=== PATIENT | female | born 1970 | race Hispanic/Latino ===

== ENCOUNTER → 2016-03-26 | Outpatient (CLI) | payer OTHER ==
[~2016-03-26] VITALS: Ht 162.6 cm; Wt 79.3 kg
[~2016-03-26] MED LIST: ALBUTEROL LIQ INH; BELV10TA PO; CEFT250T OR; COLA100C PO; ESTR625TA PO; IBUP80TA PO; KETO-28 OR; LIDOCAINE 2% INJ 100 MG/5 ML SDV (FOR ANES.) As Ordered ONE; NAPR500T OR; NORT10CA2 PO; NS 1,000 ML IV SCH; PERC5TAB6 PO; PROPOFOL 200 MG/20 ML VIAL As Ordered ONE; SPIR50TA2 PO; TYLE325T5 PO; [UNRECOGNIZED DRUG - CODE] PO
--- NOTE | 2016-03-26 07:57 | ROOR ---
Patient Name: Karen Bell Procedure Date: 03/26/2016 7:30 AM Date of : 1970 Age: 45 Room: [facility] Gender: Female Note Status: Finalized Procedure: Colonoscopy Indications: Suspected diverticulosis of the colon Providers: DO Alessandra Infante MD: Johan Cummings Requesting Provider: Medicines: Propofol per Anesthesia Complications: No immediate complications. Procedure: Pre-Anesthesia Assessment: - Prior to the procedure, a History and Physical was performed, and patient medications and allergies were reviewed. The patient is competent. The risks and benefits of the procedure and the sedation options and risks were discussed with the patient. All questions were answered and informed consent was obtained. Patient identification and proposed procedure were verified by the physician, the nurse, the anesthesiologist and the aerial survey technician in the endoscopy suite. Mental Status Examination: normal. Airway Examination: normal oropharyngeal airway and neck mobility. Respiratory Examination: clear to auscultation. CV Examination: normal. Prophylactic Antibiotics: The patient does not require prophylactic antibiotics. Prior Anticoagulants: The patient has taken no previous anticoagulant or antiplatelet agents. ASA Grade Assessment: II - A patient with mild systemic disease. After reviewing the risks and benefits, the patient was deemed in satisfactory condition to undergo the procedure. The anesthesia plan was to use monitored anesthesia care (MAC). Immediately prior to administration of medications, the patient was re-assessed for adequacy to receive sedatives. The heart rate, respiratory rate, oxygen saturations, blood pressure, adequacy of pulmonary ventilation, and response to care were monitored throughout the procedure. The physical status of the patient was re-assessed after the procedure. The Colonoscope was introduced through the anus and advanced to the cecum, identified by appendiceal orifice and ileocecal valve. The colonoscopy was performed without difficulty. The patient tolerated the procedure well. Findings: A 10 mm polyp was found in the sigmoid colon. The polyp was pedunculated. The polyp was removed with a hot snare. Resection and retrieval were complete. The exam was otherwise without abnormality on direct and retroflexion views. Impression: - One 10 mm polyp in the sigmoid colon, removed with a hot snare. Resected and retrieved. - The examination was otherwise normal on direct and retroflexion views. Recommendation: - Patient has a contact number available for emergencies. The signs and symptoms of potential delayed complications were discussed with the patient. Return to normal activities tomorrow. Written discharge instructions were provided to the patient. - Repeat colonoscopy in 5-10 years for surveillance based on pathology results. - Return to my office PRN. - Await pathology results. Mehdi Dooley DO 03/26/2016 7:56:55 AM This report has been signed electronically. Number of Addenda: 0 Note Initiated On: 03/26/2016 7:30 AM Estimated Blood Loss: Estimated blood loss was minimal.
[2016-03-26 08:22] VITALS: BP 147/83
== END ==
LOC: M OPP 06:22
PROVIDERS: ATTEND Surgery
DX: Z03.89 Encounter for observation for other suspected diseases and conditions ruled out (principal); D12.5 Benign neoplasm of sigmoid colon; K57.32 Diverticulitis of large intestine without perforation or abscess without bleeding; K42.9 Umbilical hernia without obstruction or gangrene; K92.1 Melena; R19.7 Diarrhea, unspecified; K59.00 Constipation, unspecified; G47.00 Insomnia, unspecified; G47.30 Sleep apnea, unspecified; J45.909 Unspecified asthma, uncomplicated; F32.9 Major depressive disorder, single episode, unspecified; M79.661 Pain in right lower leg; M79.662 Pain in left lower leg; R14.3 Flatulence; R30.0 Dysuria; R35.0 Frequency of micturition; M54.9 Dorsalgia, unspecified; M25.551 Pain in right hip; M25.552 Pain in left hip; M25.561 Pain in right knee; M25.562 Pain in left knee; Z79.899 Other long term (current) drug therapy; Z88.5 Allergy status to narcotic agent

== ENCOUNTER 2016-05-28 07:53 | Emergency (ER) | payer OTHER ==
[~2016-05-28] VITALS: Ht 162.6 cm; Wt 82.6 kg
[~2016-05-28 07:53] MED LIST changes: -COLA100C PO; +COLA100C3 PO; -LIDOCAINE 2% INJ 100 MG/5 ML SDV (FOR ANES.) As Ordered ONE; -NS 1,000 ML IV SCH; -PROPOFOL 200 MG/20 ML VIAL As Ordered ONE
[2016-05-28] MEDS ORDERED: ONDANSETRON 4MG/2ML VIAL (J2405) IV ONE (09:00)
[2016-05-28] MEDS ORDERED: KETOROLAC 30 MG/ML VIAL (J1885) IV ONE (09:00)
[2016-05-28] MEDS ORDERED: NS 1,000 ML IV ONE (09:00)
[2016-05-28 09:38] LABS: BASO % 0.6 % (0.0-1.0); EOS # 0.3 K/mm3 (0.0-0.50); EOS % 4.7 % (0.0-3.0); LARGE UNSTAINED CELL # 0.2 K/mm3 (0.0-0.4); LARGE UNSTAINED CELL % 3.1 % (0.0-4.0); LYMPH # 1.9 K/mm3 (1.5-4.5); LYMPH % 32.3 % (24.0-44.0); MEAN CORPUSCULAR HEMOGLOBIN 26.2 pg (27.0-33.0); MEAN CORPUSCULAR HGB CONC 33.2 g/dl (32.0-36.5); MEAN CORPUSCULAR VOLUME 78.8 fl (80.0-96.0); MONO # 0.4 K/mm3 (0.0-0.8); MONO % 6.4 % (0.0-5.0); NEUTROPHILS # 3.1 K/mm3 (1.8-7.7); NEUTROPHILS % 52.9 % (36.0-66.0); PLATELET COUNT, AUTOMATED 212 k/mm3 (150-450); RED CELL DISTRIBUTION WIDTH 12.8 % (11.5-14.5); WHITE BLOOD COUNT 5.8 K/mm3 (4.0-10.0)
[2016-05-28 10:20] LABS: ALBUMIN 3.4 GM/DL (3.2-5.2); ALBUMIN/GLOBULIN RATIO 0.83 (1.00-1.93); ALKALINE PHOSPHATASE 139 U/L (45-117); ALT/SGPT 48 U/L (12-78); ANION GAP 6 MEQ/L (8-16); AST/SGOT 30 U/L (15-37); BILIRUBIN,DIRECT < 0.1 MG/DL (0.0-0.2); BILIRUBIN,TOTAL 0.4 MG/DL (0.2-1.0); BLOOD UREA NITROGEN 16 MG/DL (7-18); CALCIUM LEVEL 9.1 MG/DL (8.5-10.1); CARBON DIOXIDE LEVEL 30 MEQ/L (21-32); CHLORIDE LEVEL 106 MEQ/L (98-107); CREATININE FOR GFR 0.76 MG/DL (0.55-1.02); GLOMERULAR FILTRATION RATE > 60.0 (>58); GLUCOSE, FASTING 102 MG/DL (70-105); POTASSIUM SERUM 3.8 MEQ/L (3.5-5.1); SODIUM LEVEL 142 MEQ/L (136-145); TOTAL PROTEIN 7.5 GM/DL (6.4-8.2)
[2016-05-28] MEDS ORDERED: MORPHINE 4 MG/ML 1ML SYRINGE IV ONE (10:30)
[2016-05-28] MEDS ORDERED: BENT20TA PO (11:51)
--- NOTE | 2016-05-28 12:06 | REP ---
KUB, TWO VIEWS: HISTORY: Abdominal pain. Air is present in small and large intestine. There are no air fluid levels or dilated loops of intestine. There is no pneumoperitoneum. A surgical clip is present in the pelvis. IMPRESSION: Nonspecific bowel gas pattern. Signed by Rivas Alarcon MD 05/28/2016 12:08 P
[2016-05-28 12:15] VITALS: BP 119/76
== END 2016-05-28 12:23 | disposition home or self-care (01) ==
LOC: EDBD 07:53 → M ED 09:08
DX: R10.12 Left upper quadrant pain (principal); R10.32 Left lower quadrant pain; M54.9 Dorsalgia, unspecified; F99 Mental disorder, not otherwise specified; Z88.5 Allergy status to narcotic agent; Z79.899 Other long term (current) drug therapy
CPT/HCPCS: 74000; 80048; 80076; 81001; 83690; 85025; 96361; 96374; 96375; 99284; J1885; J2405

== ENCOUNTER → 2016-06-06 | Outpatient (REF) | payer OTHER ==
[~2016-06-06] MED LIST changes: +BENT20TA PO
== END ==
LOC: M LAB REF 12:25
PROVIDERS: ATTEND Family Medicine Addiction Medicine
DX: R10.12 Left upper quadrant pain (principal)

== ENCOUNTER → 2016-06-20 | Outpatient (REF) | payer OTHER | LOC: M LAB REF 16:18 | PROVIDERS: ATTEND Family Medicine Addiction Medicine | DX: R30.0 Dysuria (principal) ==

== ENCOUNTER → 2016-07-07 | Outpatient (CLI) | payer OTHER ==
[~2016-07-07] MED LIST changes: +GASTROGRAFIN SOLUTION 30ML (Q9963) As Ordered ONE; +ISOVUE-370 76% 100ML VIAL (Q9967) As Ordered ONE
--- NOTE | 2016-07-08 05:48 | REP ---
Clinical: Left upper quadrant pain. Technique: Axial contrast enhanced images from the lung bases to the pubic symphysis new oozing oral and 100 ml Isovue 370 intravenous contrast material with coronal and sagittal re-formations. Comparison: 02/13/2016. Findings: Mild linear atelectasis in the left lung base is suggested and should be correlated with physical examination. Visualized heart and pericardium are normal. Small hiatal hernia suggested at the gastroesophageal junction. Fatty infiltration the liver is noted along with hepatomegaly. No focal hepatic lesion identified. Spleen, pancreas, gallbladder, bilateral adrenal glands and kidneys are normal. The enteric system is without obstruction or acute inflammatory process. Few scattered sigmoid diverticula noted without acute diverticulitis. This demonstrates prior hysterectomy a 1.1 cm right lateral bladder diverticulum is identified (image 125). No ascites. No adenopathy. No free air. Vasculature is normal. Musculoskeletal structures are grossly intact without focal osseous abnormality. Impression: 1. Mild linear atelectasis and the left lung base should be correlated clinically. 2. 1.1 cm right lateral bladder diverticulum. 3. Few scattered diverticula without acute diverticulitis. 4. Hepatomegaly and fatty infiltration to the liver without focal abnormality. Signed by Jae Hill MD 07/08/2016 05:39 A
== END ==
LOC: M RAD 11:08
PROVIDERS: ATTEND Family Medicine Addiction Medicine
DX: J98.11 Atelectasis (principal); N32.3 Diverticulum of bladder; K57.90 Diverticulosis of intestine, part unspecified, without perforation or abscess without bleeding; R16.2 Hepatomegaly with splenomegaly, not elsewhere classified; K76.0 Fatty (change of) liver, not elsewhere classified
CPT/HCPCS: 74177; Q9963; Q9967

== ENCOUNTER → 2016-07-16 | Outpatient (REF) | payer OTHER ==
[~2016-07-16] MED LIST changes: -GASTROGRAFIN SOLUTION 30ML (Q9963) As Ordered ONE; -ISOVUE-370 76% 100ML VIAL (Q9967) As Ordered ONE
[2016-07-16 09:53] LABS: MICROSCOPIC INDICATED? MAN YES (NO)
[2016-07-16 09:54] LABS: BACTERIA, URINE SMALL AMOUNT; HYALINE CAST, URINE NONE SEEN /lpf (0-1); MICROSCOPIC EXAM PERFORMED; RBC, URINE NONE SEEN /hpf (0-3); SQUAMOUS EPITHELIAL CELL URINE SMALL AMOUNT /hpf (SMALL AMT)
== END ==
LOC: M LAB REF 09:30
PROVIDERS: ATTEND Family Medicine Addiction Medicine
DX: R30.0 Dysuria (principal)

== ENCOUNTER → 2016-07-30 | Outpatient (REF) | payer OTHER, MEDICAID | LOC: M SMT 13:14 | PROVIDERS: ATTEND Nurse Practitioner Family | DX: R39.15 Urgency of urination (principal) ==

== ENCOUNTER → 2016-08-13 | Outpatient (REF) | payer OTHER, MEDICAID | LOC: M LAB REF 13:20 | PROVIDERS: ATTEND Advanced Practice Midwife | DX: R30.0 Dysuria (principal) ==

== ENCOUNTER → 2017-05-20 | Outpatient (CLI) | payer OTHER, MEDICAID | LOC: M RAD 10:40 | DX: Z12.31 Encounter for screening mammogram for malignant neoplasm of breast (principal) | CPT/HCPCS: 77067 ==

== ENCOUNTER → 2017-06-12 | Outpatient (REF) | payer MEDICARE ==
[2017-06-12 18:53] LABS: APPEARANCE, URINE MANUAL TURBID (CLEAR); COLOR, URINE MANUAL YELLOW (YELLOW)
[2017-06-12 18:54] LABS: BILIRUBIN, URINE MANUAL NEGATIVE (NEGATIVE); BLOOD URINE MANUAL NEGATIVE (NEGATIVE); GLUCOSE, URINE (UA) MANUAL NEGATIVE (NEGATIVE); KETONE, URINE MANUAL NEGATIVE (NEGATIVE); LEUKOCYTE ESTERASE, URINE MAN NEGATIVE (NEGATIVE); MICROSCOPIC INDICATED? MAN YES (NO); NITRITE, URINE MANUAL NEGATIVE (NEGATIVE); PROTEIN, URINE MANUAL NEGATIVE (NEGATIVE); SPECIFIC GRAVITY,URINE MANUAL 1.025 (1.002-1.035); UROBILINOGEN, URINE MANUAL NORMAL (NORMAL)
[2017-06-12 20:40] LABS: RBC, URINE NONE SEEN /hpf (0-3)
[2017-06-12 20:41] LABS: AMORPHOUS SEDIMENT, URINE URATES (NEGATIVE); BACTERIA, URINE NONE SEEN; MUCUS, URINE SMALL AMOUNT (NEGATIVE); SQUAMOUS EPITHELIAL CELL URINE SMALL AMOUNT /hpf (SMALL AMT); TRANSITIONAL EPI CELLS, URINE SMALL AMOUNT /hpf
[2017-06-12 20:42] LABS: HYALINE CAST, URINE NONE SEEN /lpf (0-1); MICROSCOPIC EXAM PERFORMED
== END ==
LOC: M SMT 16:54
DX: R39.89 Other symptoms and signs involving the genitourinary system (principal); R39.15 Urgency of urination
CPT/HCPCS: 81000

== ENCOUNTER → 2017-06-17 | Outpatient (CLI) | payer OTHER | LOC: M RAD 12:44 | DX: M54.9 Dorsalgia, unspecified (principal) | CPT/HCPCS: 76775 ==

== ENCOUNTER 2017-06-19 09:32 | Emergency (ER) | payer OTHER ==
[2017-06-19 10:22] LABS: BASO % 0.5 % (0.0-1.0); EOS # 0.3 10^3/uL (0.0-0.50); EOS % 3.4 % (0.0-3.0); HEMATOCRIT 44.8 % (36.0-47.0); HEMOGLOBIN 14.6 g/dl (12.0-15.5); IMMATURE GRANULOCYTE % 0.1 % (0-3.0); LYMPH % 24.6 % (24.0-44.0); MEAN CORPUSCULAR HEMOGLOBIN 25.9 pg (27.0-33.0); MEAN CORPUSCULAR HGB CONC 32.6 g/dl (32.0-36.5); MEAN CORPUSCULAR VOLUME 79.6 fl (80.0-96.0); MONO # 0.5 10^3/uL (0.0-0.8); MONO % 6.2 % (0.0-5.0); NEUTROPHILS # 5.3 10^3/uL (1.8-7.7); NEUTROPHILS % 65.2 % (36.0-66.0); PLATELET COUNT, AUTOMATED 264 10^3/uL (150-450); RED BLOOD COUNT 5.63 10^6/uL (4.00-5.40); WHITE BLOOD COUNT 8.2 10^3/uL (4.0-10.0)
[2017-06-19] MEDS: NS 1,000 ML IV (10:31)
[2017-06-19] MEDS: ONDANSETRON 4MG/2ML VIAL (J2405) IV (10:32)
[2017-06-19 10:57] LABS: ALBUMIN/GLOBULIN RATIO 0.87 (1.00-1.93); ALKALINE PHOSPHATASE 141 U/L (45-117); ALT/SGPT 41 U/L (12-78); AMYLASE 52 U/L (25-115); ANION GAP 6 MEQ/L (8-16); AST/SGOT 32 U/L (7-37); BILIRUBIN,DIRECT 0.1 MG/DL (0.0-0.2); BILIRUBIN,TOTAL 0.5 MG/DL (0.2-1.0); BLOOD UREA NITROGEN 12 MG/DL (7-18); CALCIUM LEVEL 8.9 MG/DL (8.5-10.1); CARBON DIOXIDE LEVEL 29 MEQ/L (21-32); CHLORIDE LEVEL 103 MEQ/L (98-107); GLOMERULAR FILTRATION RATE > 60.0 (>58); GLUCOSE, FASTING 136 MG/DL (70-100); LIPASE 243 U/L (73-393); SODIUM LEVEL 138 MEQ/L (136-145); TOTAL PROTEIN 8.6 GM/DL (6.4-8.2)
== END 2017-06-19 11:48 | disposition home or self-care (01) ==
LOC: M ED 09:32
DX: K80.50 Calculus of bile duct without cholangitis or cholecystitis without obstruction (principal); Z87.42 Personal history of other diseases of the female genital tract; Z98.890 Other specified postprocedural states; Z88.5 Allergy status to narcotic agent; Z86.69 Personal history of other diseases of the nervous system and sense organs
CPT/HCPCS: J2405

== ENCOUNTER → 2017-06-19 | Outpatient (CLI) | payer OTHER ==
[~2017-06-19] MED LIST changes: -ALBUTEROL LIQ INH; -BELV10TA PO; -BENT20TA PO; -CEFT250T OR; -COLA100C3 PO; -ESTR625TA PO; +GLUCAGON FOR INJ 1 MG VIAL (J1610) As Ordered; -IBUP80TA PO; +ISOVUE-370 76% 100ML VIAL (Q9967) As Ordered; -KETO-28 OR; -NAPR500T OR; -NORT10CA2 PO; -PERC5TAB6 PO; -SPIR50TA2 PO; -TYLE325T5 PO; +VoLumen 0.1% SUSPENSION 450ML BOTTLE As Ordered; -[UNRECOGNIZED DRUG - CODE] PO
== END ==
LOC: M RAD 07:33
DX: R10.10 Upper abdominal pain, unspecified (principal); R11.0 Nausea
CPT/HCPCS: Q9967

== ENCOUNTER → 2017-06-24 | Outpatient (CLI) | payer OTHER | LOC: M RAD 06:40 | DX: R11.0 Nausea (principal); R10.10 Upper abdominal pain, unspecified | CPT/HCPCS: J2805 ==

== ENCOUNTER 2017-06-30 13:36 | Day surgery (SDC) | payer OTHER ==
[2017-06-30] MEDS ORDERED: NS 1,000 ML IV (14:00)
[2017-06-30] MEDS ORDERED: PROPOFOL 200 MG/20 ML VIAL As Ordered ×2 (15:14)
[2017-06-30] MEDS ORDERED: LIDOCAINE 2% INJ 100 MG/5 ML SDV (FOR ANES.) As Ordered (15:14)
== END 2017-06-30 16:00 | disposition home or self-care (01) ==
LOC: M OPP 16:00
DX: R10.9 Unspecified abdominal pain (principal); R14.0 Abdominal distension (gaseous); R11.2 Nausea with vomiting, unspecified; K31.89 Other diseases of stomach and duodenum; K44.9 Diaphragmatic hernia without obstruction or gangrene; K76.0 Fatty (change of) liver, not elsewhere classified; M41.9 Scoliosis, unspecified; L30.9 Dermatitis, unspecified; F32.9 Major depressive disorder, single episode, unspecified; G43.909 Migraine, unspecified, not intractable, without status migrainosus; J45.909 Unspecified asthma, uncomplicated; R06.83 Snoring; G47.00 Insomnia, unspecified; G47.30 Sleep apnea, unspecified; Z88.5 Allergy status to narcotic agent
CPT/HCPCS: 43239

== ENCOUNTER 2017-07-24 06:15 | Day surgery (SDC) | payer OTHER ==
[2017-07-24] MEDS ORDERED: MIDAZOLAM INJ 2 MG/2 ML VIAL (J2250) As Ordered (06:50)
[2017-07-24] MEDS ORDERED: ROCURONIUM BROMIDE 50 MG/5 ML VIAL As Ordered (06:51)
[2017-07-24] MEDS ORDERED: fentaNYL 100 MCG/2 ML INJECTION (J3010) As Ordered ×2 (06:51→08:03)
[2017-07-24] MEDS ORDERED: PROPOFOL 200 MG/20 ML VIAL As Ordered (06:51)
[2017-07-24] MEDS ORDERED: LIDOCAINE 2% INJ 100 MG/5 ML SDV (FOR ANES.) As Ordered (06:51)
[2017-07-24] MEDS ORDERED: dexameTHASONE 4 MG/ML 1ML VIAL (J1100) As Ordered (06:52)
[2017-07-24] MEDS ORDERED: ONDANSETRON 4MG/2ML VIAL (J2405) As Ordered (06:52)
[2017-07-24] MEDS: LR 1,000 ML IV ×2 (07:31→08:39)
[2017-07-24] MEDS: LIDOCAINE W/EPINEPHRINE 1% 20ML VIAL As Ordered (08:00)
[2017-07-24] MEDS ORDERED: SUGAMMADEX SODIUM 500 MG/5 ML VIAL (BRIDION) As Ordered (08:13)
[2017-07-24] MEDS ORDERED: ONDANSETRON 4MG/2ML VIAL (J2405) IV (09:00)
[2017-07-24] MEDS ORDERED: fentaNYL 100 MCG/2 ML INJECTION (J3010) IV (09:00)
[2017-07-24] MEDS: KETOROLAC 30 MG/ML VIAL (J1885) IV (09:50)
[2017-07-24] MEDS: PERCOCET 5MG/325MG TAB PO (09:50)
[2017-07-24] MEDS: NORCO, ANEXSIA 5/325MG TABLET (HYDROcodone/ACETAMINOPHEN) PO (15:33)
[2017-07-24] MEDS: ONDANSETRON 4 MG TAB (S0181) PO (20:40)
[2017-07-25] MEDS: NORCO, ANEXSIA 5/325MG TABLET (HYDROcodone/ACETAMINOPHEN) PO ×2 (04:06→10:43)
== END 2017-07-25 13:22 | disposition home or self-care (01) ==
LOC: M SDC 06:15 → M MSPAV 11:42
DX: K80.20 Calculus of gallbladder without cholecystitis without obstruction (principal); G47.30 Sleep apnea, unspecified; Z79.899 Other long term (current) drug therapy; F32.9 Major depressive disorder, single episode, unspecified; J45.909 Unspecified asthma, uncomplicated
CPT/HCPCS: 47562

== ENCOUNTER → 2017-08-20 | Outpatient (CLI) | payer OTHER, MEDICAID | LOC: M EKG 11:57 | DX: R01.1 Cardiac murmur, unspecified (principal); M41.9 Scoliosis, unspecified; M25.511 Pain in right shoulder; M50.30 Other cervical disc degeneration, unspecified cervical region; M51.34 Other intervertebral disc degeneration, thoracic region; M51.36 Other intervertebral disc degeneration, lumbar region | CPT/HCPCS: 72052 ==

== ENCOUNTER → 2017-09-21 | Outpatient (CLI) | payer OTHER | LOC: M CARPUL 09:29 | DX: R01.1 Cardiac murmur, unspecified (principal) | CPT/HCPCS: 93306 ==

== ENCOUNTER → 2017-12-09 | Outpatient (REF) | payer OTHER | LOC: M LAB REF 14:32 | DX: J02.9 Acute pharyngitis, unspecified (principal) ==

== ENCOUNTER → 2018-03-22 | Outpatient (CLI) | payer OTHER ==
[~2018-03-22] MED LIST changes: +ALBUTEROL LIQ INH; +BELV10TA PO; +BENT20TA PO; +CEFT250T OR; +COLA100C5 PO; +ESTR625TA PO; -GLUCAGON FOR INJ 1 MG VIAL (J1610) As Ordered; +IBUP-1022 PO; +IBUP80TA PO; -ISOVUE-370 76% 100ML VIAL (Q9967) As Ordered; +KETO-28 OR; +NAPR500T OR; +NORT10CA2 PO; +PERC5TAB12 PO; +PRIL20TA2 PO; +PYLE1CAP PO; +SPIR50TA4 PO; +SUCR1SS PO; +TYLE325T5 PO; +VENTAER IN; -VoLumen 0.1% SUSPENSION 450ML BOTTLE As Ordered; +ZOFR4TAB14 PO; +[UNRECOGNIZED DRUG - CODE] PO; +[UNRECOGNIZED DRUG - OTHER]
--- NOTE | 2018-03-22 09:51 | REP ---
ABDOMINAL WALL ULTRASOUND: HISTORY: Evaluate for umbilical hernia. Comparison CT study is from June 19, 2017. FINDINGS: There is a hypoechoic area just superior to the umbilicus 2.2 x 1.3 x 1.2 cm in diameter. This may be a ventral hernia in the supraumbilical midline abdominal wall. It does not change with transducer pressure or Valsalva. It is visible as a tiny subcentimeter defect on CT study from June 19, 2017. IMPRESSION: Tiny supraumbilical hernia suspected containing mesenteric fat. No change with Valsalva or transducer pressure. Electronically Signed by Jacek Thibodeaux MD 03/22/2018 10:41 A
== END ==
LOC: M RAD 07:21
PROVIDERS: ATTEND Surgery
DX: K46.9 Unspecified abdominal hernia without obstruction or gangrene (principal)

== ENCOUNTER → 2018-04-01 | Outpatient (CLI) | payer OTHER ==
--- NOTE | 2018-04-02 00:47 | ECGEPIP ---
Stationary ECG Study [facility] Test Date: 2018-04-01 Pat Name: VIANEY REYES Department: Room: - Gender: F [employer]inder: BALDEMAR : 1970 Requested By: TORIE Mejia Order Number: [id number] Reading MD: Raúl Bhakta Measurements Intervals Mcroberts Rate: 80 P: 25 SD: 152 QRS: -8 QRSD: 101 T: 12 QT: 386 QTc: 446 Interpretive Statements SINUS RHYTHM POSSIBLE RIGHT VENTRICULAR CONDUCTION DELAY POSSIBLE LEFT VENTRICULAR HYPERTROPHY COMPARED TO THE MOST RECENT TO TRACINGS IN THE SYSTEM, RIGHT VENTRICULAR CONDUCTION DELAY IS NEW Electronically Signed On 04-02-2018 0:47:36 EST by Raúl Bhakta
== END ==
LOC: M EKG 12:47
PROVIDERS: ATTEND Surgery
DX: K42.9 Umbilical hernia without obstruction or gangrene (principal)

== ENCOUNTER 2018-05-14 05:47 | Day surgery (SDC) | payer OTHER ==
[~2018-05-14] VITALS: Ht 162.6 cm; Wt 83.8 kg
[~2018-05-14 05:47] MED LIST changes: +MULTCAP PO
[2018-05-14] MEDS ORDERED: TYLE325C PO (06:41)
[2018-05-14] MEDS ORDERED: ONDANSETRON 4MG/2ML VIAL (J2405) As Ordered ONE (06:57)
[2018-05-14] MEDS ORDERED: PROPOFOL 200 MG/20 ML VIAL As Ordered ONE (06:57)
[2018-05-14] MEDS ORDERED: LIDOCAINE 2% INJ 100 MG/5 ML SDV (FOR ANES.) As Ordered ONE (06:57)
[2018-05-14] MEDS ORDERED: ROCURONIUM BROMIDE 50 MG/5 ML VIAL As Ordered ONE (06:57)
[2018-05-14] MEDS ORDERED: KETOROLAC 60 MG/2 ML VIAL (J1885) As Ordered ONE (06:57)
[2018-05-14] MEDS ORDERED: dexameTHASONE 4 MG/ML 1ML VIAL (J1100) As Ordered ONE (06:57)
[2018-05-14] MEDS ORDERED: MIDAZOLAM INJ 2 MG/2 ML VIAL (J2250) As Ordered ONE (07:00)
[2018-05-14] MEDS ORDERED: LR 1,000 ML IV ONE (07:00)
[2018-05-14] MEDS ORDERED: fentaNYL 100 MCG/2 ML INJECTION (J3010) As Ordered ONE ×2 (07:00→07:56)
[2018-05-14] MEDS ORDERED: LIDOCAINE 1% SDV INJ 30 ML VIAL As Ordered ONE (07:12)
[2018-05-14] MEDS ORDERED: BUPIVACAINE HCL 0.25% 30 ML VIAL As Ordered ONE (07:12)
[2018-05-14] MEDS ORDERED: SUGAMMADEX SODIUM 500 MG/5 ML VIAL (BRIDION) As Ordered ONE (07:45)
[2018-05-14] MEDS ORDERED: ONDANSETRON 4MG/2ML VIAL (J2405) IV PRN ×2 (09:15)
[2018-05-14] MEDS ORDERED: fentaNYL 100 MCG/2 ML INJECTION (J3010) IV PRN (09:15)
[2018-05-14] MEDS ORDERED: LR 1,000 ML IV SCH (09:15)
[2018-05-14] MEDS ORDERED: KETOROLAC 30 MG/ML VIAL (J1885) IV PRN (09:15)
[2018-05-14] MEDS ORDERED: NORCO, ANEXSIA 5/325MG TABLET (HYDROcodone/ACETAMINOPHEN) PO PRN ×2 (09:15)
[2018-05-14] MEDS ORDERED: ALBUTEROL SULFATE 2.5 MG/0.5 ML INH NEB SOLN As Ordered ONE (09:36)
[2018-05-14] MEDS ORDERED: ALBUTEROL SULFATE 2.5 MG/0.5 ML INH NEB SOLN INH ONE (10:00)
[2018-05-14 11:00] VITALS: BP 130/71
== END 2018-05-14 11:17 | disposition home or self-care (01) ==
LOC: M SDC 05:47
PROVIDERS: ATTEND Surgery
DX: K46.9 Unspecified abdominal hernia without obstruction or gangrene (principal); G47.33 Obstructive sleep apnea (adult) (pediatric); J45.909 Unspecified asthma, uncomplicated; G47.00 Insomnia, unspecified; M41.9 Scoliosis, unspecified; F32.9 Major depressive disorder, single episode, unspecified; K21.9 Gastro-esophageal reflux disease without esophagitis
CPT/HCPCS: 49585; 88300; J0690; J1100; J1885; J2250; J2405; J3010

== ENCOUNTER → 2018-09-23 | Outpatient (CLI) | payer OTHER ==
[~2018-09-23] MED LIST changes: +TYLE325C PO
--- NOTE | 2018-09-23 14:38 | REP ---
Left thumb four views : There is no fracture or dislocation. Mineralization and joint spaces are normal. There are no calcifications or foreign bodies. Impression: Negative left thumb . Electronically Signed by Mehdi Chirinos MD 09/23/2018 10:31 A
== END ==
LOC: M LAB 10:00
PROVIDERS: ATTEND Physician Assistant Medical
DX: S60.932A Unspecified superficial injury of left thumb, initial encounter (principal)

== ENCOUNTER 2018-11-26 08:42 | Day surgery (SDC) | payer OTHER ==
[~2018-11-26] VITALS: Ht 162.6 cm; Wt 84.7 kg
[~2018-11-26 08:42] MED LIST changes: +ACET-683 PO; +LIDOCAINE 1% MDV 20ML VIAL SQ PRN; +LIDOCAINE 2% INJ 100 MG/5 ML SDV (FOR ANES.) As Ordered ONE; +LR 1,000 ML IV ONE; +MIDAZOLAM INJ 2 MG/2 ML VIAL (J2250) As Ordered ONE; +PROPOFOL 200 MG/20 ML VIAL As Ordered ONE; +fentaNYL 100 MCG/2 ML INJECTION (J3010) As Ordered ONE
[2018-11-26] MEDS ORDERED: BUPIVACAINE HCL 0.25% 30 ML VIAL As Ordered ONE (10:17)
[2018-11-26] MEDS ORDERED: BUPIVACAINE/EPIN 0.25% 30 ML VIAL As Ordered ONE (10:33)
[2018-11-26] MEDS ORDERED: dexameTHASONE 4 MG/ML 1ML VIAL (J1100) As Ordered ONE (10:44)
[2018-11-26] MEDS ORDERED: KETOROLAC 60 MG/2 ML VIAL (J1885) As Ordered ONE (10:44)
[2018-11-26] MEDS ORDERED: ONDANSETRON 4MG/2ML VIAL (J2405) As Ordered ONE (10:44)
[2018-11-26 11:45] VITALS: BP 119/85
--- NOTE | 2018-11-26 12:32 | RO ---
DATE OF PROCEDURE: 11/26/2018 PREPROCEDURE DIAGNOSIS: Left trigger thumb. POSTPROCEDURE DIAGNOSIS: Left trigger thumb with flexor pollicis longus (FPL) tendinitis. PROCEDURE: 1. Left trigger A1 negro release. 2. FPL debridement. SURGEON: Dr. Spencer Morton CHILDCARE TEACHER: Klaus who was necessary for intricate retraction that was necessary for completion of procedure. ANESTHESIA: Moderate sedation. ESTIMATED BLOOD LOSS: Minimal. TOURNIQUET TIME: 10 minutes. OPERATIVE INDICATIONS: Pleasant 47-year-old female who had significant pain in the left thumb. She failed nonoperative treatment of her left trigger thumb with severe pain in the palm. We discussed the risks and benefits of operative release including but not limited to infection, damage to underlying soft tissue structures and recurrence. Patient expresses understanding and agrees with the plan and wanted to proceed. DESCRIPTION OF PROCEDURE: Patient was brought back to the operating room (OR) and underwent general anesthesia and laid supine on the table. At which point, we pre-injected with 0.25% Marcaine with epinephrine 10 mL to the left thumb. Then we prepped and draped the limb in the usual fashion. We elevated the tourniquet to 250 mmHg after completing a time-out confirming site and side of surgery. We then made a sharp horizontal incision along the proximal thumb crease just through the skin. We then used tenotomy to dissect through the subcu tissue identifying the radial and ulnar digital nerves of the thumb. We then retracted them safely out of the way and used a 15 blade to longitudinally incise the A1 negro. It opened up like a book with adequate release. We then identified the FPL tendon. There was a large nodule in the middle. We debrided this nodule. I felt the integrity of the tendon was mostly intact, therefore, we left it alone and did not do a tubulization procedure. We then irrigated the wound and closed with #4-0 Monocryl using Mastisol, Steri-Strips, gauze, Edmond and Coban for dressing. At this point, the tourniquet was let down at 10 minutes. Patient was transferred to the postanesthesia care unit (PACU). POSTOPERATIVE PLAN: The patient will work on pain control. We will see her in the office in 2 weeks for a clinical recheck. She may avoid any heavy lifting, pushing and pulling for that time period.
== END 2018-11-26 12:04 | disposition home or self-care (01) ==
LOC: M SDC 08:42
PROVIDERS: ATTEND Orthopaedic Surgery Hand Surgery
DX: M65.312 Trigger thumb, left thumb (principal); M79.89 Other specified soft tissue disorders; J45.909 Unspecified asthma, uncomplicated; R06.83 Snoring; G47.33 Obstructive sleep apnea (adult) (pediatric); Z88.5 Allergy status to narcotic agent; Z90.710 Acquired absence of both cervix and uterus
CPT/HCPCS: 11011; 26055; J1100; J1885; J2250; J2405; J3010

== ENCOUNTER → 2019-01-13 | Outpatient (REF) | payer OTHER ==
[~2019-01-13] MED LIST changes: -LIDOCAINE 1% MDV 20ML VIAL SQ PRN; -LIDOCAINE 2% INJ 100 MG/5 ML SDV (FOR ANES.) As Ordered ONE; -LR 1,000 ML IV ONE; -MIDAZOLAM INJ 2 MG/2 ML VIAL (J2250) As Ordered ONE; -PROPOFOL 200 MG/20 ML VIAL As Ordered ONE; -fentaNYL 100 MCG/2 ML INJECTION (J3010) As Ordered ONE
== END ==
LOC: M LAB REF 09:10
PROVIDERS: ATTEND Physician Assistant
DX: R30.0 Dysuria (principal)

== ENCOUNTER → 2019-04-08 | Outpatient (REF) | payer OTHER, MEDICAID ==
[2019-04-08 11:06] LABS: BASO % 0.6 % (0.0-1.0); EOS # 0.3 10^3/uL (0.0-0.5); EOS % 5.1 % (0.0-3.0); HEMATOCRIT 44.6 % (36.0-47.0); HEMOGLOBIN 13.9 g/dl (12.0-15.5); LYMPH # 2.5 10^3/uL (1.5-5.0); MEAN CORPUSCULAR HEMOGLOBIN 26.7 pg (27.0-33.0); MEAN CORPUSCULAR HGB CONC 31.2 g/dl (32.0-36.5); MEAN CORPUSCULAR VOLUME 85.8 fl (80.0-96.0); MONO # 0.5 10^3/uL (0.0-0.8); MONO % 7.9 % (0.0-5.0); NEUTROPHILS % 47.2 % (36.0-66.0); PLATELET COUNT, AUTOMATED 254 10^3/uL (150-450); WHITE BLOOD COUNT 6.4 10^3/uL (4.0-10.0)
[2019-04-08 11:19] LABS: ALBUMIN 3.7 GM/DL (3.2-5.2); ALT/SGPT 38 U/L (12-78); BILIRUBIN,TOTAL 0.4 MG/DL (0.2-1.0); BLOOD UREA NITROGEN 16 MG/DL (7-18); CALCIUM LEVEL 8.7 MG/DL (8.5-10.1); CARBON DIOXIDE LEVEL 29 MEQ/L (21-32); CHLORIDE LEVEL 107 MEQ/L (98-107); CHOLESTEROL LEVEL 218 MG/DL (<200); CHOLESTEROL RISK RATIO 6.228 (<5); CREATININE FOR GFR 0.76 MG/DL (0.55-1.30); FREE T4 1.25 NG/DL (0.76-1.46); GLOMERULAR FILTRATION RATE > 60.0 (>58); GLUCOSE, FASTING 102 MG/DL (70-100); HDL CHOLESTEROL 35 MG/DL (>40); NON-HDL-C 183 MG/DL; POTASSIUM SERUM 4.1 MEQ/L (3.5-5.1); SODIUM LEVEL 140 MEQ/L (136-145); TOTAL PROTEIN 7.5 GM/DL (6.4-8.2); TRIGLYCERIDES LEVEL 520 MG/DL (<150)
[2019-04-08 11:31] LABS: TOTAL 25(OH) VITAMIN D 21.4 NG/ML (30.0-100.0)
[2019-04-08 11:34] LABS: HEMOGLOBIN A1c 6.1 %
== END ==
LOC: M LAB REF 10:06
PROVIDERS: ATTEND Family Medicine
DX: R10.9 Unspecified abdominal pain (principal); Z13.228 Encounter for screening for other metabolic disorders

== ENCOUNTER → 2019-07-14 | Outpatient (CLI) | payer OTHER ==
[2019-07-14 10:34] LABS: BASO % 0.5 % (0.0-1.0); EOS # 0.4 10^3/uL (0.0-0.5); EOS % 5.3 % (0.0-3.0); HEMATOCRIT 42.3 % (36.0-47.0); HEMOGLOBIN 13.7 g/dl (12.0-15.5); LYMPH # 2.1 10^3/uL (1.5-5.0); LYMPH % 31.8 % (24.0-44.0); MEAN CORPUSCULAR HEMOGLOBIN 27.2 pg (27.0-33.0); MEAN CORPUSCULAR HGB CONC 32.4 g/dl (32.0-36.5); MEAN CORPUSCULAR VOLUME 84.1 fl (80.0-96.0); MONO # 0.5 10^3/uL (0.0-0.8); MONO % 7.6 % (0.0-5.0); NEUTROPHILS # 3.6 10^3/uL (1.5-8.5); NEUTROPHILS % 54.6 % (36.0-66.0); PLATELET COUNT, AUTOMATED 246 10^3/uL (150-450); RED BLOOD COUNT 5.03 10^6/uL (4.00-5.40); WHITE BLOOD COUNT 6.6 10^3/uL (4.0-10.0)
[2019-07-14 10:38] LABS: APPEARANCE, URINE CLEAR (CLEAR); BACTERIA, URINE AUTO NEGATIVE (NEGATIVE); BILIRUBIN, URINE AUTO NEGATIVE (NEGATIVE); BLOOD, URINE BLOOD 1+ (NEGATIVE); COLOR, URINE YELLOW (YELLOW); GLUCOSE, URINE (UA) AUTO NEGATIVE (NEGATIVE); KETONE, URINE AUTO NEGATIVE (NEGATIVE); LEUKOCYTE ESTERASE, URINE AUTO NEGATIVE (NEGATIVE); MUCUS, URINE SMALL (NEGATIVE); NITRITE, URINE AUTO NEGATIVE (NEGATIVE); PROTEIN, URINE AUTO NEGATIVE (NEGATIVE); RBC, URINE AUTO 1 /HPF (0-3); SPECIFIC GRAVITY URINE AUTO 1.012 (1.002-1.035); SQUAMOUS EPITHELIAL CELL UR AU 0 /HPF (0-6); UROBILINOGEN, URINE AUTO 0.2 mg/dL (0.0-2.0); WBC, URINE AUTO 2 /HPF (0-3)
[2019-07-14 11:11] LABS: HEMOGLOBIN A1c 6.1 %
[2019-07-14 13:31] LABS: FREE T4 1.1 NG/DL (0.76-1.46); THYROID STIMULATING HORMONE 0.849 uIU/ML (0.358-3.740); TOTAL 25(OH) VITAMIN D 19.6 NG/ML (30.0-100.0)
== END ==
LOC: M LAB 09:58
PROVIDERS: ATTEND Nurse Practitioner Family
DX: N64.52 Nipple discharge (principal); N64.4 Mastodynia; E78.49 Other hyperlipidemia; T78.40XA Allergy, unspecified, initial encounter; M54.9 Dorsalgia, unspecified; E66.9 Obesity, unspecified; R10.9 Unspecified abdominal pain

== ENCOUNTER → 2019-07-15 | Outpatient (CLI) | payer OTHER ==
[2019-07-15 10:14] LABS: ALBUMIN 3.6 GM/DL (3.2-5.2); ALT/SGPT 41 U/L (12-78); BILIRUBIN,TOTAL 0.5 MG/DL (0.2-1.0); BLOOD UREA NITROGEN 12 MG/DL (7-18); CALCIUM LEVEL 8.7 MG/DL (8.5-10.1); CARBON DIOXIDE LEVEL 27 MEQ/L (21-32); CHLORIDE LEVEL 106 MEQ/L (98-107); CHOLESTEROL LEVEL 177 MG/DL (<200); CHOLESTEROL RISK RATIO 4.538 (<5); CREATININE FOR GFR 0.73 MG/DL (0.55-1.30); GLOMERULAR FILTRATION RATE > 60.0 (>58); GLUCOSE, FASTING 107 MG/DL (70-100); HDL CHOLESTEROL 39 MG/DL (>40); LDL CHOLESTEROL 73 MG/DL (<100); NON-HDL-C 138 MG/DL; POTASSIUM SERUM 4.4 MEQ/L (3.5-5.1); SODIUM LEVEL 142 MEQ/L (136-145); TOTAL PROTEIN 7.1 GM/DL (6.4-8.2); TRIGLYCERIDES LEVEL 324 MG/DL (<150)
== END ==
LOC: M LAB 08:46
PROVIDERS: ATTEND Nurse Practitioner Family
DX: N64.52 Nipple discharge (principal); E78.49 Other hyperlipidemia; T78.40XA Allergy, unspecified, initial encounter; M54.9 Dorsalgia, unspecified; E66.9 Obesity, unspecified; R10.9 Unspecified abdominal pain

== ENCOUNTER → 2019-08-11 | Outpatient (REF) | payer OTHER ==
[2019-08-11 14:17] LABS: BLOOD UREA NITROGEN 18 MG/DL (7-18); CALCIUM LEVEL 9.4 MG/DL (8.5-10.1); CARBON DIOXIDE LEVEL 29 MEQ/L (21-32); CHLORIDE LEVEL 108 MEQ/L (98-107); CREATININE FOR GFR 0.71 MG/DL (0.55-1.30); GLOMERULAR FILTRATION RATE > 60.0 (>58); GLUCOSE, FASTING 104 MG/DL (70-100); POTASSIUM SERUM 4.4 MEQ/L (3.5-5.1); SODIUM LEVEL 141 MEQ/L (136-145); THYROID STIMULATING HORMONE 0.536 uIU/ML (0.358-3.740)
[2019-08-11 14:21] LABS: PROLACTIN 7.3 NG/ML
== END ==
LOC: M PLALAB 11:54
PROVIDERS: ATTEND Surgery
DX: N64.52 Nipple discharge (principal)

== ENCOUNTER → 2019-09-30 | Outpatient (CLI) | payer OTHER ==
[~2019-09-30] MED LIST changes: +PROHANCE 279.3MG/ML 15ML VIAL As Ordered ONE; +PROHANCE 279.3MG/ML 5ML VIAL As Ordered ONE
--- NOTE | 2019-11-18 11:26 | REP ---
MRI BILATERAL BREASTS WITH AND WITHOUT CONTRAST COMPARISON: Mammogram and ultrasound 06/24/2019, which showed probable intramammary lymph node at 4 o'clock left breast 5-mm in diameter. HISTORY: Discharge and pain. TECHNIQUE: Multiple sequences obtained in the axial, coronal, and sagittal planes prior to and following the intravenous administration of 16 mL ProHance. Images are evaluated in the [employer] software including dynamic post-IV gadolinium axial T1 fat sat images, subtraction images, color overlay images, CAD images, and MIP reconstruction images. FINDINGS: There is mild scattered fibroglandular tissue bilaterally. There is mild background parenchymal enhancement bilaterally. Multiple subcentimeter cysts are scattered throughout both breasts. Normal size lymph nodes are seen in both axillary regions without significant axillary adenopathy. In the 4 o'clock region of the left breast somewhat posteriorly, there is a subcentimeter oval kidney bradley shape enhancing nodule having the appearance of an intramammary lymph node as seen on the prior mammogram and ultrasound. There may be another intramammary lymph node at 12 o'clock left breast with similar appearance also subcentimeter in size and more anteriorly located. There also appears to be a subcentimeter intramammary lymph node in the lateral right breast at about 3 o'clock posteriorly. No suspicious enhancing mass or morphologic abnormality is seen. IMPRESSION: BI-RADS category 2 benign bilateral breast MRI. There are several subcentimeter cysts scattered throughout both breasts. There appears to be a subcentimeter intramammary lymph node in the posterolateral aspect of the right breast and at 12 o'clock left breast. At the site of the intramammary lymph node 4 o'clock left breast, there does appear to be a subcentimeter intramammary lymph node. No suspicious enhancing mass or morphologic abnormality. ADDENDUM Incidental note is made of an ill-defined area of hyperintense signal on T2- weighted images in the right middle lobe of the lung. This appears to enhance. This could indicate underlying right middle lobe infiltrate. Recommend CT of the chest to further evaluate. MTDD
== END ==
LOC: M RAD 13:30
PROVIDERS: ATTEND Surgery
DX: N64.52 Nipple discharge (principal); N64.4 Mastodynia; N63.20 Unspecified lump in the left breast, unspecified quadrant
CPT/HCPCS: A9576; C8908

== ENCOUNTER → 2019-12-29 | Outpatient (CLI) | payer OTHER ==
[~2019-12-29] MED LIST changes: -PROHANCE 279.3MG/ML 15ML VIAL As Ordered ONE; -PROHANCE 279.3MG/ML 5ML VIAL As Ordered ONE
--- NOTE | 2019-12-29 15:06 | REP ---
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 COMPARISON: Comparison radiographs January 06, 2011. TECHNIQUE: Two views.. FINDINGS: Lungs are symmetrically aerated and free of infiltrate. There is minimal linear fibrosis in the left base. Cardiomediastinal silhouette is unremarkable. Pleural angles are sharp. No infiltrate is visible. Pulmonary vasculature is not increased. IMPRESSION: Linear fibrosis left base. No infiltrate seen.. <Electronically signed by Leonidas Thibodeaux > 12/29/19 1308
== END ==
LOC: M RAD 09:43
PROVIDERS: ATTEND Nurse Practitioner Family
DX: Z12.2 Encounter for screening for malignant neoplasm of respiratory organs (principal)

== ENCOUNTER → 2020-01-04 | Outpatient (REF) | payer OTHER, MEDICAID ==
[2020-01-04 12:11] LABS: BASO % 0.6 % (0.0-1.0); EOS # 0.3 10^3/uL (0.0-0.5); EOS % 3.9 % (0.0-3.0); HEMOGLOBIN 14.1 g/dl (12.0-15.5); LYMPH # 2.6 10^3/uL (1.5-5.0); LYMPH % 36.1 % (24.0-44.0); MEAN CORPUSCULAR HEMOGLOBIN 26.3 pg (27.0-33.0); MEAN CORPUSCULAR HGB CONC 31.3 g/dl (32.0-36.5); MONO # 0.6 10^3/uL (0.0-0.8); MONO % 8.7 % (0.0-5.0); NEUTROPHILS # 3.6 10^3/uL (1.5-8.5); NEUTROPHILS % 50.4 % (36.0-66.0); PLATELET COUNT, AUTOMATED 253 10^3/uL (150-450); RED BLOOD COUNT 5.36 10^6/uL (4.00-5.40); WHITE BLOOD COUNT 7.1 10^3/uL (4.0-10.0)
[2020-01-04 12:45] LABS: ALBUMIN 3.7 GM/DL (3.2-5.2); ALT/SGPT 82 U/L (12-78); BILIRUBIN,TOTAL 0.5 MG/DL (0.2-1.0); BLOOD UREA NITROGEN 16 MG/DL (7-18); CALCIUM LEVEL 9.2 MG/DL (8.5-10.1); CARBON DIOXIDE LEVEL 30 MEQ/L (21-32); CHLORIDE LEVEL 107 MEQ/L (98-107); CHOLESTEROL LEVEL 216 MG/DL (<200); CHOLESTEROL RISK RATIO 4.909 (<5); CREATININE FOR GFR 0.73 MG/DL (0.55-1.30); FERRITIN 178 NG/ML (8-252); GLOMERULAR FILTRATION RATE > 60.0 (>58); GLUCOSE, FASTING 102 MG/DL (70-100); HDL CHOLESTEROL 44 MG/DL (>40); IRON (FE) 51 UG/DL (50-170); LDL CHOLESTEROL 132 MG/DL (<100); NON-HDL-C 172 MG/DL; POTASSIUM SERUM 4.6 MEQ/L (3.5-5.1); SODIUM LEVEL 142 MEQ/L (136-145); TOTAL 25(OH) VITAMIN D 25.5 NG/ML (30.0-100.0); TOTAL PROTEIN 7.8 GM/DL (6.4-8.2); TRIGLYCERIDES LEVEL 199 MG/DL (<150); VITAMIN B12 LEVEL 1034 PG/ML
[2020-01-04 12:46] LABS: FOLATE 18.4 NG/ML
[2020-01-04 19:43] LABS: HEMOGLOBIN A1c 6.4 %
== END ==
LOC: M LAB REF 11:13
PROVIDERS: ATTEND Nurse Practitioner Family
DX: R73.03 Prediabetes (principal); Z13.9 Encounter for screening, unspecified; E78.49 Other hyperlipidemia; E66.9 Obesity, unspecified

== ENCOUNTER → 2020-01-20 | Outpatient (REF) | payer OTHER ==
[2020-01-20 17:50] LABS: FREE T4 0.99 NG/DL (0.76-1.46); RHEUMATOID FACTOR QUANT < 10.0 IU/ML (<15.0); THYROID STIMULATING HORMONE 0.441 uIU/ML (0.358-3.740)
[2020-01-20 17:51] LABS: THYROID PEROXIDASE ANTIBODY 39.4 U/ML (<60.0)
[2020-01-25 12:07] LABS: ANTI DS-DNA AB Negative (Negative)
== END ==
LOC: M LAB REF 16:34
PROVIDERS: ATTEND Nurse Practitioner Family
DX: L65.9 Nonscarring hair loss, unspecified (principal)

== ENCOUNTER → 2020-05-07 | Outpatient (REF) | payer OTHER ==
[2020-05-07 18:01] LABS: BASO % 0.6 % (0.0-1.0); EOS # 0.3 10^3/uL (0.0-0.5); HEMATOCRIT 44.1 % (36.0-47.0); LYMPH # 2.4 10^3/uL (1.5-5.0); LYMPH % 36.6 % (24.0-44.0); MEAN CORPUSCULAR HEMOGLOBIN 26.4 pg (27.0-33.0); MEAN CORPUSCULAR HGB CONC 31.7 g/dl (32.0-36.5); MEAN CORPUSCULAR VOLUME 83.2 fl (80.0-96.0); MONO # 0.6 10^3/uL (0.0-0.8); MONO % 8.4 % (2.0-8.0); NEUTROPHILS # 3.3 10^3/uL (1.5-8.5); NEUTROPHILS % 50.1 % (36.0-66.0); PLATELET COUNT, AUTOMATED 246 10^3/uL (150-450); WHITE BLOOD COUNT 6.6 10^3/uL (4.0-10.0)
[2020-05-07 18:24] LABS: ALBUMIN 3.7 GM/DL (3.2-5.2); ALT/SGPT 52 U/L (12-78); BILIRUBIN,TOTAL 0.7 MG/DL (0.2-1.0); BLOOD UREA NITROGEN 17 MG/DL (7-18); CALCIUM LEVEL 8.9 MG/DL (8.5-10.1); CARBON DIOXIDE LEVEL 27 MEQ/L (21-32); CHLORIDE LEVEL 106 MEQ/L (98-107); CHOLESTEROL LEVEL 235 MG/DL (<200); CHOLESTEROL RISK RATIO 5.875 (<5); CREATININE FOR GFR 0.76 MG/DL (0.55-1.30); GLOMERULAR FILTRATION RATE > 60.0 (>58); GLUCOSE, FASTING 84 MG/DL (70-100); HDL CHOLESTEROL 40 MG/DL (>40); LDL CHOLESTEROL 143 MG/DL (<100); NON-HDL-C 195 MG/DL; POTASSIUM SERUM 5.1 MEQ/L (3.5-5.1); SODIUM LEVEL 140 MEQ/L (136-145); TOTAL PROTEIN 7.4 GM/DL (6.4-8.2); TRIGLYCERIDES LEVEL 262 MG/DL (<150)
[2020-05-07 18:32] LABS: TOTAL 25(OH) VITAMIN D 24.7 NG/ML (30.0-100.0)
[2020-05-07 19:09] LABS: HEMOGLOBIN A1c 6.2 %
== END ==
LOC: M LAB REF 17:06
PROVIDERS: ATTEND Nurse Practitioner Family
DX: E11.65 Type 2 diabetes mellitus with hyperglycemia (principal); I10 Essential (primary) hypertension; E66.9 Obesity, unspecified; L65.9 Nonscarring hair loss, unspecified

== ENCOUNTER → 2020-07-03 | Outpatient (CLI) | payer SELFPAY | LOC: M LABSMTC 12:29 | PROVIDERS: ATTEND Pediatrics | DX: Z11.52 Encounter for screening for COVID-19 (principal) ==

== ENCOUNTER → 2020-09-27 | Outpatient (REF) | payer OTHER ==
[2020-09-27 18:23] LABS: BASO % 0.7 % (0.0-1.0); EOS # 0.2 10^3/uL (0.0-0.5); EOS % 3.9 % (0.0-3.0); HEMATOCRIT 44.7 % (36.0-47.0); HEMOGLOBIN 14.3 g/dl (12.0-15.5); LYMPH # 2.2 10^3/uL (1.5-5.0); LYMPH % 37.7 % (24.0-44.0); MEAN CORPUSCULAR HEMOGLOBIN 26.9 pg (27.0-33.0); MONO # 0.5 10^3/uL (0.0-0.8); MONO % 8.5 % (2.0-8.0); NEUTROPHILS # 2.9 10^3/uL (1.5-8.5); NEUTROPHILS % 49.2 % (36.0-66.0); PLATELET COUNT, AUTOMATED 245 10^3/uL (150-450); RED BLOOD COUNT 5.32 10^6/uL (4.00-5.40); WHITE BLOOD COUNT 5.9 10^3/uL (4.0-10.0)
[2020-09-27 18:54] LABS: ALBUMIN 3.8 GM/DL (3.2-5.2); ALT/SGPT 63 U/L (12-78); BILIRUBIN,TOTAL 0.5 MG/DL (0.2-1.0); BLOOD UREA NITROGEN 13 MG/DL (7-18); CALCIUM LEVEL 8.9 MG/DL (8.5-10.1); CARBON DIOXIDE LEVEL 30 MEQ/L (21-32); CHLORIDE LEVEL 106 MEQ/L (98-107); CHOLESTEROL LEVEL 250 MG/DL (<200); CHOLESTEROL RISK RATIO 6.097 (<5); CREATININE FOR GFR 0.72 MG/DL (0.55-1.30); GLOMERULAR FILTRATION RATE > 60.0 (>58); GLUCOSE, FASTING 95 MG/DL (70-100); HDL CHOLESTEROL 41 MG/DL (>40); LDL CHOLESTEROL 139 MG/DL (<100); NON-HDL-C 209 MG/DL; POTASSIUM SERUM 4.8 MEQ/L (3.5-5.1); SODIUM LEVEL 140 MEQ/L (136-145); TOTAL PROTEIN 7.6 GM/DL (6.4-8.2); TRIGLYCERIDES LEVEL 351 MG/DL (<150)
[2020-09-27 19:42] LABS: HEMOGLOBIN A1c 6.2 %
== END ==
LOC: M LAB REF 17:39
PROVIDERS: ATTEND Nurse Practitioner Family
DX: E78.5 Hyperlipidemia, unspecified (principal); I10 Essential (primary) hypertension; R73.03 Prediabetes

== ENCOUNTER → 2020-11-12 | Outpatient (CLI) | payer OTHER | LOC: M WHC 10:43 | PROVIDERS: ATTEND Surgery | DX: R92.8 Other abnormal and inconclusive findings on diagnostic imaging of breast (principal) | CPT/HCPCS: 76642; 77066; G0279 ==

== ENCOUNTER → 2021-03-29 | Outpatient (CLI) | payer OTHER ==
[~2021-03-29] MED LIST changes: +ATOR40TA75 PO; +IBUP-1720 PO; +VENTAER INH
== END ==
LOC: M PLALAB 08:39
PROVIDERS: ATTEND Internal Medicine Gastroenterology
DX: K58.2 Mixed irritable bowel syndrome (principal)

== ENCOUNTER → 2021-04-03 | Outpatient (CLI) | payer OTHER, MEDICAID | LOC: M LABSMTC 11:02 | PROVIDERS: ATTEND Anesthesiology | DX: Z01.818 Encounter for other preprocedural examination (principal); Z11.52 Encounter for screening for COVID-19 ==

== ENCOUNTER 2021-04-08 10:23 | Day surgery (SDC) | payer OTHER ==
[~2021-04-08] VITALS: Ht 162.6 cm; Wt 85.6 kg
[2021-04-08] MEDS ORDERED: NS 1,000 ML IV ONE (11:15)
[2021-04-08] MEDS ORDERED: LIDOCAINE 2% 100MG/5ML SDV (FOR ANES.) As Ordered ONE (12:05)
[2021-04-08] MEDS ORDERED: propofoL 200 MG/20 ML VIAL As Ordered ONE (12:05)
[2021-04-08] MEDS ORDERED: fentaNYL 100 MCG/2 ML INJECTION As Ordered ONE (12:05)
[2021-04-08 12:44] VITALS: BP 115/79
== END 2021-04-08 12:46 | disposition home or self-care (01) ==
LOC: M OPP 10:23
PROVIDERS: ATTEND Internal Medicine Gastroenterology
DX: K58.2 Mixed irritable bowel syndrome (principal); R19.4 Change in bowel habit; K22.89 Other specified disease of esophagus; R19.7 Diarrhea, unspecified; R10.9 Unspecified abdominal pain; G47.30 Sleep apnea, unspecified; K76.0 Fatty (change of) liver, not elsewhere classified; Z79.899 Other long term (current) drug therapy; Z88.5 Allergy status to narcotic agent; Z91.013 Allergy to seafood; Z91.018 Allergy to other foods
CPT/HCPCS: 43239; 45380; 88305; 88342; J3010

== ENCOUNTER → 2022-04-30 | Outpatient (REF) | payer OTHER ==
[2022-04-30 11:05] LABS: HEMOGLOBIN A1c 7.2 % (4.0-6.0)
== END ==
LOC: M LAB REF 10:03
PROVIDERS: ATTEND Nurse Practitioner Family
DX: R73.03 Prediabetes (principal); E78.5 Hyperlipidemia, unspecified; I10 Essential (primary) hypertension

== ENCOUNTER → 2022-05-07 | Outpatient (REF) | payer OTHER | LOC: M LAB REF 12:28 | PROVIDERS: ATTEND Nurse Practitioner Family | DX: R39.9 Unspecified symptoms and signs involving the genitourinary system (principal) ==

== ENCOUNTER → 2022-05-16 | Outpatient (CLI) | payer OTHER ==
[2022-05-16 10:42] LABS: ALBUMIN 3.7 G/DL (3.2-5.2); BILIRUBIN,DIRECT 0.1 MG/DL (<0.4); BILIRUBIN,TOTAL 0.6 MG/DL (0.3-1.2); TOTAL PROTEIN 7.5 G/DL (5.7-8.2)
== END ==
LOC: M LAB 09:06
PROVIDERS: ATTEND Physician Assistant Medical
DX: K76.0 Fatty (change of) liver, not elsewhere classified (principal)

== ENCOUNTER → 2022-05-19 | Outpatient (CLI) | payer OTHER | LOC: M WHC 08:37 | PROVIDERS: ATTEND Nurse Practitioner Family | DX: Z12.31 Encounter for screening mammogram for malignant neoplasm of breast (principal) ==

== ENCOUNTER → 2022-05-21 | Outpatient (CLI) | payer OTHER | LOC: M RAD 07:48 | PROVIDERS: ATTEND Physician Assistant Medical | DX: K76.0 Fatty (change of) liver, not elsewhere classified (principal) ==

== ENCOUNTER → 2022-06-20 | Outpatient (CLI) | payer OTHER ==
[2022-06-20 15:07] LABS: HEMOGLOBIN 13.4 g/dl (12.0-15.5); MEAN CORPUSCULAR HEMOGLOBIN 26.4 pg (27.0-33.0); MEAN CORPUSCULAR HGB CONC 31.9 g/dl (32.0-36.5); MEAN CORPUSCULAR VOLUME 82.7 fl (80.0-96.0); PLATELET COUNT, AUTOMATED 242 10^3/uL (150-450); RED BLOOD COUNT 5.08 10^6/uL (4.00-5.40); WHITE BLOOD COUNT 6.5 10^3/uL (4.0-10.0)
[2022-06-20 15:27] LABS: IRON (FE) 46 UG/DL (50-170); PERCENT SATURATION 13.5 % (13.2-45.0); TOTAL IRON BINDING CAPACITY 341 UG/DL (250-425)
[2022-06-20 15:41] LABS: HEPATITIS B SURFACE ANTIGEN NEGATIVE (NEGATIVE)
[2022-06-20 16:03] LABS: HEPATITIS B CORE ANTIBODY IGM NEGATIVE (NEGATIVE)
[2022-06-25 15:08] LABS: ANCA-ATYPICAL <1:20 titer (Neg:<1:20); ANTI-MITOCHONDRIAL ANTIBODY <20.0 Units (0.0-20.0); ANTINUCLEAR ANTIBODIES DIRECT Negative (Negative); CERULOPLASMIN 29.5 mg/dL (19.0-39.0); CYTOPLASMIC NEUTROP AB ANCA-C <1:20 titer (Neg:<1:20); LIVER-KIDNEY MICROSOMAL ABY <20.1 Units (0.0-20.0); PERINUCLEAR AB ANCA-P <1:20 titer (Neg:<1:20)
== END ==
LOC: M LAB 14:03
PROVIDERS: ATTEND Physician Assistant Medical
DX: R16.0 Hepatomegaly, not elsewhere classified (principal); K76.0 Fatty (change of) liver, not elsewhere classified; R74.01 Elevation of levels of liver transaminase levels

== ENCOUNTER → 2022-10-01 | Outpatient (REF) | payer OTHER ==
[2022-10-01 15:30] LABS: HEMOGLOBIN A1c 6.9 % (4.0-6.0)
[2022-10-03 13:11] LABS: UNITSIGA FOR GLIADIN IGA 4 units (0-19); UNITSIGG FOR GLIADIN IGG 3 units (0-19)
== END ==
LOC: M LAB REF 12:07
PROVIDERS: ATTEND Nurse Practitioner Family
DX: K90.41 Non-celiac gluten sensitivity (principal); E78.5 Hyperlipidemia, unspecified; R73.03 Prediabetes; I10 Essential (primary) hypertension

== ENCOUNTER 2022-10-08 11:42 | Emergency (ER) | payer OTHER ==
[~2022-10-08] VITALS: Ht 162.6 cm; Wt 87.2 kg
[2022-10-08] MEDS ORDERED: METF-838 (12:06)
[2022-10-08] MEDS ORDERED: OMEP40CA5 (12:06)
[2022-10-08 12:15] LABS: BASO # 0.1 10^3/uL (0.0-0.2); BASO % 0.6 % (0.0-1.0); EOS # 0.3 10^3/uL (0.0-0.5); EOS % 3.4 % (0.0-3.0); HEMATOCRIT 43.4 % (36.0-47.0); LYMPH # 2.6 10^3/uL (1.5-5.0); LYMPH % 31.1 % (24.0-44.0); MEAN CORPUSCULAR HEMOGLOBIN 26.8 pg (27.0-33.0); MEAN CORPUSCULAR HGB CONC 32.3 g/dl (32.0-36.5); MEAN CORPUSCULAR VOLUME 83.1 fl (80.0-96.0); MONO # 0.6 10^3/uL (0.0-0.8); MONO % 7.6 % (2.0-8.0); NEUTROPHILS # 4.8 10^3/uL (1.5-8.5); NEUTROPHILS % 57.1 % (36.0-66.0); PLATELET COUNT, AUTOMATED 245 10^3/uL (150-450); RED BLOOD COUNT 5.22 10^6/uL (4.00-5.40); WHITE BLOOD COUNT 8.3 10^3/uL (4.0-10.0)
[2022-10-08 12:35] LABS: CK-MB VALUE MASS 1.3 NG/ML (<3.6)
[2022-10-08 12:36] LABS: CPK CREATINE PHOSPHOKINASE 126 U/L (34-145); MB/CK RELATIVE INDEX 1.03 (< OR =4)
[2022-10-08 12:37] LABS: BLOOD UREA NITROGEN 13 MG/DL (9-23); CALCIUM LEVEL 9.2 MG/DL (8.5-10.1); CARBON DIOXIDE LEVEL 28 MMOL/L (20-31); CHLORIDE LEVEL 106 MMOL/L (98-107); CREATININE FOR GFR 0.56 MG/DL (0.55-1.30); GLOMERULAR FILTRATION RATE > 60.0 (>58); GLUCOSE, FASTING 123 MG/DL (60-100); POTASSIUM SERUM 4.2 MMOL/L (3.5-5.1); SODIUM LEVEL 139 MMOL/L (136-145)
[2022-10-08 13:22] LABS: MAGNESIUM LEVEL 1.8 MG/DL (1.8-2.4)
[2022-10-08 13:26] LABS: FREE THYROXINE INDEX 2.6 % (1.3-4.8); T UPTAKE 29.4 % (22.5-37.0); THYROID STIMULATING HORMONE 0.985 uIU/ML (0.55-4.78); THYROXINE (T4) 8.8 UG/DL (4.5-10.9)
[2022-10-08 13:39] LABS: CK-MB VALUE MASS 1.4 NG/ML (<3.6)
[2022-10-08 13:41] LABS: MB/CK RELATIVE INDEX 1.26 (< OR =4)
[2022-10-08] MEDS ORDERED: HOLTER MONITOR XX (14:03)
[2022-10-08 14:09] VITALS: BP 146/93; TEMP 97.5; O2SAT 96
== END 2022-10-08 14:15 | disposition home or self-care (01) ==
LOC: M ED 11:42 → EDBD 11:42 → M ED 14:15
DX: R00.2 Palpitations (principal); J45.909 Unspecified asthma, uncomplicated; Z88.5 Allergy status to narcotic agent; Z91.013 Allergy to seafood; Z91.018 Allergy to other foods; Z79.51 Long term (current) use of inhaled steroids; Z79.899 Other long term (current) drug therapy; Z79.84 Long term (current) use of oral hypoglycemic drugs

== ENCOUNTER → 2022-10-12 | Outpatient (CLI) | payer OTHER ==
[~2022-10-12] MED LIST changes: +HOLTER MONITOR XX; +METF-838; +OMEP40CA5
== END ==
LOC: M EKG 14:34
PROVIDERS: ATTEND Emergency Medicine
DX: R00.2 Palpitations (principal)

== ENCOUNTER → 2023-01-05 | Outpatient (REF) | payer OTHER ==
[2023-01-05 17:20] LABS: BASO % 0.6 % (0.0-1.0); EOS # 0.3 10^3/uL (0.0-0.5); EOS % 4.1 % (0.0-3.0); HEMOGLOBIN 13.7 g/dl (12.0-15.5); LYMPH # 2.1 10^3/uL (1.5-5.0); LYMPH % 31.1 % (24.0-44.0); MEAN CORPUSCULAR HEMOGLOBIN 26.7 pg (27.0-33.0); MEAN CORPUSCULAR HGB CONC 31.9 g/dl (32.0-36.5); MEAN CORPUSCULAR VOLUME 83.7 fl (80.0-96.0); MONO # 0.5 10^3/uL (0.0-0.8); NEUTROPHILS # 3.9 10^3/uL (1.5-8.5); NEUTROPHILS % 57.1 % (36.0-66.0); PLATELET COUNT, AUTOMATED 221 10^3/uL (150-450); RED BLOOD COUNT 5.14 10^6/uL (4.00-5.40); WHITE BLOOD COUNT 6.8 10^3/uL (4.0-10.0)
[2023-01-05 17:26] LABS: ALBUMIN 3.6 G/DL (3.2-5.2); ALKALINE PHOSPHATASE 112 U/L (46-116); ALT/SGPT 72 U/L (7.0-40); AST/SGOT 64 U/L (<34); BILIRUBIN,TOTAL 0.5 MG/DL (0.3-1.2); BLOOD UREA NITROGEN 12 MG/DL (9-23); CARBON DIOXIDE LEVEL 26 MMOL/L (20-31); CHLORIDE LEVEL 104 MMOL/L (98-107); CHOLESTEROL LEVEL 239 MG/DL (<200); CHOLESTEROL RISK RATIO 5.82 (<5); CREATININE FOR GFR 0.55 MG/DL (0.55-1.30); GLOMERULAR FILTRATION RATE > 60.0 (>51); GLUCOSE, FASTING 155 MG/DL (60-100); LDL CHOLESTEROL 154.2 MG/DL (<100); POTASSIUM SERUM 4.5 MMOL/L (3.5-5.1); SODIUM LEVEL 137 MMOL/L (136-145); TOTAL PROTEIN 7.3 G/DL (5.7-8.2); TRIGLYCERIDES LEVEL 219 MG/DL (<150)
[2023-01-05 17:52] LABS: HEMOGLOBIN A1c 7.3 % (4.0-6.0)
== END ==
LOC: M LAB REF 16:33
PROVIDERS: ATTEND Nurse Practitioner Family
DX: E11.9 Type 2 diabetes mellitus without complications (principal); E78.5 Hyperlipidemia, unspecified

== ENCOUNTER → 2024-01-01 | Outpatient (REF) | payer OTHER ==
[2024-01-01 14:14] LABS: ALBUMIN 3.6 G/DL (3.2-5.2); ALKALINE PHOSPHATASE 121 U/L (35-104); ALT/SGPT 48 U/L (7.0-40); AST/SGOT 37 U/L (<34); BILIRUBIN,TOTAL 1.2 MG/DL (0.3-1.2); BLOOD UREA NITROGEN 13 MG/DL (9-23); CALCIUM LEVEL 9.6 MG/DL (8.5-10.1); CARBON DIOXIDE LEVEL 28 MMOL/L (20-31); CHLORIDE LEVEL 104 MMOL/L (98-107); CHOLESTEROL LEVEL 264 MG/DL (<200); CHOLESTEROL RISK RATIO 6.33 (<5); CREATININE FOR GFR 0.56 MG/DL (0.55-1.30); GLOMERULAR FILTRATION RATE > 60.0 (>51); GLUCOSE, FASTING 148 MG/DL (60-100); HDL CHOLESTEROL 41.7 MG/DL (>40); LDL CHOLESTEROL 168.3 MG/DL (<100); NON-HDL-C 222.3 MG/DL; POTASSIUM SERUM 4.2 MMOL/L (3.5-5.1); SODIUM LEVEL 138 MMOL/L (136-145); THYROID STIMULATING HORMONE 0.932 uIU/ML (0.55-4.78); TOTAL PROTEIN 7.8 G/DL (5.7-8.2); TRIGLYCERIDES LEVEL 270 MG/DL (<150)
[2024-01-01 14:18] LABS: HEMOGLOBIN A1c 9.3 % (4.0-6.0)
== END ==
LOC: M LAB REF 12:52
PROVIDERS: ATTEND Nurse Practitioner Family
DX: R73.03 Prediabetes (principal); E78.5 Hyperlipidemia, unspecified

== ENCOUNTER → 2024-06-01 | Outpatient (REF) | payer OTHER ==
[2024-06-01 15:21] LABS: ALBUMIN 3.7 G/DL (3.2-5.2); ALKALINE PHOSPHATASE 112 U/L (35-104); ALT/SGPT 31 U/L (7.0-40); AST/SGOT 23 U/L (<34); BILIRUBIN,TOTAL 0.4 MG/DL (0.3-1.2); BLOOD UREA NITROGEN 11 MG/DL (9-23); CALCIUM LEVEL 9.2 MG/DL (8.5-10.1); CARBON DIOXIDE LEVEL 28 MMOL/L (20-31); CHLORIDE LEVEL 103 MMOL/L (98-107); CHOLESTEROL LEVEL 252 MG/DL (<200); CHOLESTEROL RISK RATIO 6.17 (<5); CREATININE FOR GFR 0.51 MG/DL (0.55-1.30); GLOMERULAR FILTRATION RATE > 60.0 (>51); GLUCOSE, FASTING 172 MG/DL (60-100); HDL CHOLESTEROL 40.8 MG/DL (>40); NON-HDL-C 211.2 MG/DL; POTASSIUM SERUM 4.6 MMOL/L (3.5-5.1); SODIUM LEVEL 139 MMOL/L (136-145); TOTAL PROTEIN 7.7 G/DL (5.7-8.2); TRIGLYCERIDES LEVEL 535 MG/DL (<150)
[2024-06-01 15:51] LABS: HEMOGLOBIN A1c 8.1 % (4.0-6.0)
== END ==
LOC: M LAB REF 12:26
PROVIDERS: ATTEND Nurse Practitioner Family
DX: E78.5 Hyperlipidemia, unspecified (principal); E11.9 Type 2 diabetes mellitus without complications

== ENCOUNTER → 2024-12-20 | Outpatient (CLI) | payer OTHER ==
[~2024-12-20] MED LIST changes: -IBUP-1022 PO; +IBUP600T42 PO
== END ==
LOC: M CARPUL 10:06
PROVIDERS: ATTEND Student in an Organized Health Care Education/Training Program
DX: R01.1 Cardiac murmur, unspecified (principal)

== ENCOUNTER → 2024-12-23 | Outpatient (REF) | payer OTHER ==
[2024-12-23 17:01] LABS: ALT/SGPT 31 U/L (7.0-40); AST/SGOT 23 U/L (<34); CALCIUM LEVEL 9.3 MG/DL (8.5-10.1); CARBON DIOXIDE LEVEL 28 MMOL/L (20-31); CHLORIDE LEVEL 103 MMOL/L (98-107); CHOLESTEROL LEVEL 227 MG/DL (<200); CHOLESTEROL RISK RATIO 5.34 (<5); CREATININE FOR GFR 0.64 MG/DL (0.55-1.30); GLOMERULAR FILTRATION RATE > 90.0 (>51); LDL CHOLESTEROL 113.5 MG/DL (<100); NON-HDL-C 184.5 MG/DL; POTASSIUM SERUM 4.9 MMOL/L (3.5-5.1); SODIUM LEVEL 142 MMOL/L (136-145); TRIGLYCERIDES LEVEL 355 MG/DL (<150)
[2024-12-23 18:03] LABS: ESTIMATED AVERAGE GLUCOSE 143.0 MG/DL (60-110)
== END ==
LOC: M LAB REF 16:22
PROVIDERS: ATTEND Student in an Organized Health Care Education/Training Program
DX: E78.5 Hyperlipidemia, unspecified (principal); Z79.4 Long term (current) use of insulin